=== PATIENT | female | born 1995 | race Caucasian/White ===

== ENCOUNTER 2020-08-25 05:10 | Inpatient (IN) | payer MEDICAID ==
[~2020-08-25] VITALS: Ht 162.6 cm; Wt 88.9 kg
[2020-08-25] MEDS ORDERED: PROTONIX40 MG PO (05:47)
[2020-08-25 05:48] VITALS: BP 109/75; BMI 33.7
[2020-08-25] MEDS ORDERED: TYLENOL ARTHRI650 MG PO (05:48)
--- NOTE | 2020-08-25 06:18 | NUR ---
DR JORDAN NOTIFIED AND REVIEWED PT'S BEHAVIOR AND ASSESSMENT RESULTS. PT IS A LOW RISK PER DR JORDAN. DR JORDAN STATED TP GIVE RESOURCES TO PT AT TIME OF DISCHARGE. NO FURTHER ORDERS AT THIS TIME. RESOURCES REVIEWED WITH PT AND SHE VERBALIZED UNDERSTANDING.
[2020-08-25 07:42] LABS: HEMATOCRIT 33.3 % (36.0-48.0); HEMOGLOBIN 10.7 g/dL (12-16); MCH 27.4 pg (26.0-34.0); MCHC 32.1 g/dL (31.0-37.0); MCV 85.2 fL (80.0-100.0); MEAN PLATELET VOLUME 9.7 fL (7.4-10.4); RBC 3.91 10x6/uL (4.00-5.40); RDW 13.9 % (11.5-14.5); WBC 10.8 10x3/uL (4.8-10.8)
[2020-08-25 08:13] LABS: UDS - AMPHET NEGATIVE QUAL (NEGATIVE); UDS - BARB NEGATIVE QUAL (NEGATIVE); UDS - BENZO NEGATIVE QUAL (NEGATIVE); UDS - COCAINE NEGATIVE QUAL (NEGATIVE); UDS - OPIATE NEGATIVE QUAL (NEGATIVE); UDS - PCP NEGATIVE QUAL (NEGATIVE); UDS - THC NEGATIVE QUAL (NEGATIVE)
[2020-08-26 07:16] LABS: RAPID PLASMA REAGIN Non Reactive (Non Reactive)
[2020-08-26 13:51] VITALS: Ht 162.6 cm; Wt 88.9 kg
== END 2020-08-26 09:23 | disposition home or self-care (01) | DRG 833 ==
LOC: D.LD 05:10
PROVIDERS: ADMIT Obstetrics & Gynecology; ATTEND Obstetrics & Gynecology
PROC: 3E033VJ Introduction of Other Hormone into Peripheral Vein, Percutaneous Approach (ICD-10-PCS; principal; 2020-08-25)
DX: O36.63X0 Maternal care for excessive fetal growth, third trimester, not applicable or unspecified (principal); Z3A.39 39 weeks gestation of pregnancy; O61.0 Failed medical induction of labor

== ENCOUNTER 2020-08-30 10:11 | Outpatient (CLI) | payer MEDICAID ==
[2020-08-26 13:51] VITALS: BMI 33.7
[~2020-08-30 10:11] MED LIST: PROTONIX40 MG PO; TYLENOL ARTHRI650 MG PO
== END 2020-08-30 11:00 | disposition home or self-care (01) ==
LOC: D.LDO 10:11
PROVIDERS: ATTEND Obstetrics & Gynecology
DX: O35.9XX0 Maternal care for (suspected) fetal abnormality and damage, unspecified, not applicable or unspecified (principal)

== ENCOUNTER 2020-08-31 05:20 | Inpatient (IN) | payer MEDICAID ==
[~2020-08-31] VITALS: Ht 162.6 cm; Wt 92.1 kg
[2020-08-31 05:30] VITALS: BP 117/83; Ht 162.6 cm; Wt 92.1 kg
--- NOTE | 2020-08-31 05:37 | NUR ---
IV START IN RIGHT HAND. FIRST ATTEMPT, 18 GUAGE, SALINE LOCKED. IV PATENT, CLEAN AND DRY.
[2020-08-31 06:22] LABS: UDS - AMPHET NEGATIVE QUAL (NEGATIVE); UDS - BARB NEGATIVE QUAL (NEGATIVE); UDS - BENZO NEGATIVE QUAL (NEGATIVE); UDS - COCAINE NEGATIVE QUAL (NEGATIVE); UDS - OPIATE NEGATIVE QUAL (NEGATIVE); UDS - PCP NEGATIVE QUAL (NEGATIVE); UDS - THC NEGATIVE QUAL (NEGATIVE)
[2020-08-31 06:29] LABS: HEMATOCRIT 32.7 % (36.0-48.0); HEMOGLOBIN 10.3 g/dL (12-16); MCHC 31.5 g/dL (31.0-37.0); MCV 85.6 fL (80.0-100.0); MEAN PLATELET VOLUME 9.6 fL (7.4-10.4); RBC 3.82 10x6/uL (4.00-5.40); RDW 14.4 % (11.5-14.5); WBC 11.2 10x3/uL (4.8-10.8)
[2020-09-01] VITALS (12 sets, daily range): BP systolic 92–133; BP diastolic 54–88
[2020-09-01 07:16] LABS: RAPID PLASMA REAGIN Non Reactive (Non Reactive)
--- NOTE | 2020-09-01 08:03 | NUR ---
PT RECEIVED IN BED IN ROOM 1273 FROM QA DEVELOPER RAS GARCIA. PT AAOx3, RATING PAIN 8/10 AND REQUESTING PAIN MED. PT INSTRUCTED WILL SET UP VALVE MECHANIC SOON POSSIBLE. ASSESSMENT COMPLETED, VSS, SEE FLOWSHEET FOR DOC. IV INFUSING PITOCIN IN NS TO LEFT WRIST PIV, NO SIGNS OF PHLEBITIS OR INFILTRATION. FF, ML, U/2. SMALL RUBRA LOCHIA, NO CLOTS EXPELLED WITH MASSAGE. OCCLUSIVE DRESSING OVER LOW TRANSVERSE INCISION IS C/D/I. TORRES CATH IN PLACE AND DRAINING CLEAR YELLOW URINE TO BEDSIDE DRAINAGE. STAT LOCK TO INNER LEFT THIGH, LOOSE. NEW STAT LOCK PLACED TO INNER RIGHT THIGH AND TUBING SECURED. SCD'S ON LE BILAT AND ON PUMP. WILL REVIEW VALVE MECHANIC ORDERS AND SET UP ORDERED FOR PAIN CONTROL.
--- NOTE | 2020-09-01 08:20 | NUR ---
FF, ML, U/2. SMALL RUBRA LOCHIA, NO CLOTS. TORADOL ADMIN ORDERED PRN AND SUPERVISOR FORMING DEPARTMENT SET UP ORDERED, SEE EMAR FOR DOC. NEW ICE PACK TO ABD INCISION. NURSERY TO ROOM WITH AT THIS TIME.
--- NOTE | 2020-09-01 09:00 | NUR ---
FF, ML, U/2. SMALL RUBRA LOCHIA, NO CLOTS. PT VERBALIZES RELIEF FROM PAIN, RATES PAIN APPROX 4/10 AT THIS TIME. TORRES CATH NOTED TO HAVE 20ML DARK YELLOW URINE IN UROMETER. PT DENIES NAUSEA, ENCOURAGED TO PUSH PO FLUIDS FOR HYDRATION TOLERATED. PT STATES SHE WOULD LIKE APPLE JUICE, JELLO, AND A POPSICLE. PROVIDED TO PT REQUESTED, INSTRUCTED TO DRINK SLOWLY AND REPORT ANY NAUSEA. UNDERSTANDING VERBALIZED. PT ALSO GIVEN INSTRUCTIONS ON USING INCENTIVE SPIROMETER, RETURN DEMONSTRATES x3 WITH GOOD EFFORT, GOOD COUGH. SURGICAL PILLOW TO INCISION TO BRACE ABD. PT DENIES FURTHER NEEDS AT THIS TIME. PT MOTHER AT BEDSIDE. SRUx2, CL AND SEAFOOD MANAGER BUTTON IN REACH.
--- NOTE | 2020-09-01 10:02 | NUR ---
THIS RN TO ROOM FOR PT CHECK. PT LYING IN BED, SUPINE WITH RIGHT TILT. RESP EVEN AND UNLABORED. CL AND LINING MARKER BUTTON IN REACH. SRUx2. PT LEFT UNDISTURBED FOR REST.
--- NOTE | 2020-09-01 10:50 | NUR ---
THIS RN TO ROOM FOR PT CHECK. PT CONTINUES RESTING WITH EYES CLOSED, RESP EVEN AND UNLABORED. SUPINE WITH LEFT TILT. SRUx2, CL AND RAPID OUTSOLE STITCHER BUTTON IN REACH. PT LEFT UNDISTURBED FOR REST.
--- NOTE | 2020-09-01 11:35 | NUR ---
THIS RN TO ROOM FOR PT CHECK. PT RESTING WITH EYES CLOSED, RESP EVEN AND UNLABORED. 100ML DARK YELLOW URINE EMPTIED FROM UROMETER. PT AWAKENS TO VOICE FOR FUNDAL CHECK. FF, ML, U/2. MODERATE RUBRA LOCHIA NOTED TO PERIPAD, NO CLOTS EXPELLED WITH MASSAGE. PERICARE DONE, BED TOWEL CHANGED AND NEW PERIPADS PLACED. FANS DELIVERS CLEAR LIQUID LUNCH TRAY TO PT. PT STATES SHE WOULD LIKE TO SIT UP AND EAT. PT ASSISTED TO SITTING POSITION WITH MINIMAL ASSIST, PILLOWS BEHIND BACK AND HEAD. TRAY SET UP FOR PT. PT DENIES FURTHER NEED FOR ASSIST. SRUX2, CL AND CUT FILE CLERK BUTTON IN REACH. COUGHING AND DEEP BREATHING DONE INDEPENDENTLY PER PT.
--- NOTE | 2020-09-01 12:04 | NUR ---
VSS, SEE FLOWSHEET FOR ALL VS DOC. NURSERY NURSE TO ROOM AT THIS TIME FOR ASSISTANCE. SRUx2, CL AND PRICE CLERK IN REACH.
[2020-09-01 13:07] LABS: BASOPHILS 0.1 % (0-2); EOSINOPHILS 0.1 % (0-7); HEMATOCRIT 27.1 % (36.0-48.0); HEMOGLOBIN 8.7 g/dL (12-16); IMMATURE GRANULOCYTES 0.3 % (0-5); LYMPHOCYTE ABS# 1.94 10x3/uL (1.18-3.74); LYMPHOCYTES 12.2 % (15-50); MCH 27.5 pg (26.0-34.0); MCHC 32.1 g/dL (31.0-37.0); MCV 85.8 fL (80.0-100.0); MEAN PLATELET VOLUME 9.6 fL (7.4-10.4); MONOCYTES 9.5 % (2-11); NEUTROPHIL ABS# 12.34 10x3/uL (1.56-6.13); NEUTROPHILS 77.8 % (40-80); PLATELET COUNT 255 10x3/uL (130-400); RBC 3.16 10x6/uL (4.00-5.40); RDW 14.2 % (11.5-14.5)
--- NOTE | 2020-09-01 13:14 | NUR ---
THIS RN TO ROOM FOR PT CHECK. PT SITTING UP IN BED, HOLDING INFANT. 100ML DARK YELLOW URINE EMPTIED FROM UROMETER. FF, ML, U/2. SMALL RUBRA LOCHIA, NO CLOTS. VSS, SEE FLOWSHEET FOR DOC. PT STATES SHE WOULD LIKE SOMETHING NON-DROWSY FOR PAIN IF POSSIBLE, DISCUSSED THAT TORADOL WAS ALREADY GIVEN. PT RATES PAIN 4/10 AT THIS TIME,BUT DOESNT WANT TO PRESS SCHOOL BUS DRIVER/CUSTODIAN BUTTON. PT STATES SHE WAS WONDERING IF THERE WAS ANYTHING ELSE SHE COULD TRY BECAUSE SCHOOL BUS DRIVER/CUSTODIAN IS MAKING HER TOO DROWSY. WILL NOTIFY . Rain2 CL AND SCHOOL BUS DRIVER/CUSTODIAN BUTTON IN REACH.
[2020-09-01 13:31] LABS: WBC 15.8 10x3/uL (4.8-10.8)
--- NOTE | 2020-09-01 13:33 | NUR ---
DR PINEDA ON UNIT. REPORT GIVEN ON PT REQUEST FOR PAIN MED LESS DROWSY THAN UNDER WATER ASSISTANT. ORDER RECEIVED TO STOP AND HOLD UNDER WATER ASSISTANT, AND START PT ON ORAL PAIN MEDS. NORCO 10/325MG PO Q4HPRN MOD-SEVERE PAIN, AND MOTRIN 600MG PO Q6HPRN MILD PAIN. WILL PROCEED ORDERED.
--- NOTE | 2020-09-01 13:38 | NUR ---
DR PINEDA ON UNIT, REVIEWING 1245 LABS. NO NEW ORDERS RECEIVED AT THIS TIME.
--- NOTE | 2020-09-01 14:02 | NUR ---
PT LOGISTICS SUPPLY OFFICER STOPPED AND HELD, IV SALINE LOCKED ORDERED. PT ADMIN PRN MOTRIN AND NORCO 10 ORDERED FOR PAIN, SEE EMAR FOR DOC. PT PROVIDED WITH JUICE AND CRACKERS WITH PO PAIN MEDS ORDERED, ENCOURAGED TO DRINK AND EAT SLOWLY TO AVOID NAUSEA. FF, ML, U/2. SMALL RUBRA LOCHIA. PERIPADS CHANGED. 45ML DARK YELLOW URINE EMPTIED FROM UROMETER. SRUx2, CL IN REACH. PLACED IN [place] AT BEDSIDE PER PT REQUEST.
--- NOTE | 2020-09-01 15:25 | NUR ---
THIS RN TO ROOM FOR PT CHECK. PT SITTING UP IN BED, TALKING WITH SIG OTHER. PT VERBALIZES RELIEF FROM PAIN AFTER PO PAIN MEDS, RATES PAIN APPROX 3-4/10. PT DENIES NAUSEA OR ANY NEEDS. 475ML CLEAR YELLOW URINE EMPTIED FROM UROMETER. WILL ADVANCE DIET TOLERATED PER ORDER FROM DR PINEDA. SRUx2, CL IN REACH.
--- NOTE | 2020-09-01 15:55 | NUR ---
PT CALLS OUT WELDER/FITTER LIGHT REQUESTING ASSIST WITH . PT ASSISTED WITH LATCHING TO RIGHT BREAST. 350ML CLEAR YELLOW URINE EMPTIED FROM UROMETER. PT DENIES FURTHER NEEDS. SRUx2, CL IN REACH.
--- NOTE | 2020-09-01 17:08 | NUR ---
THIS RN TO ROOM FOR PT CHECK. PT FINISHED EATING REG DIET DINNER TRAY, DENIES NAUSEA. 275ML CLEAR YELLOW URINE EMPTIED FROM UROMETER. PT REQUESTING GAS-X FOR GAS PAIN AFTER EATING, ADMIN ORDERED PRN. SEE EMAR FOR DOC. PT DENIES FURTHER NEEDS AT THIS TIME. SRUx2, CL IN REACH. WILL CONT TO MONITOR.
--- NOTE | 2020-09-01 18:20 | NUR ---
PT CALLS OUT STOCK BROKER LIGHT REQUESTING PAIN MED. THIS RN TO ROOM. PT ADMIN PRN NORCO 10 ORDERED FOR PAIN, PT RATING PAIN 12/25. MED TIMES UPDATED ON WHITE BOARD. 600ML CLEAR YELLOW URINE EMPTIED FROM UROMETER. PT DENIES FURTHER NEEDS. INFANT TO PT PER PT REQUEST. SRUx2, CL IN REACH.
--- NOTE | 2020-09-01 19:32 | NUR ---
MOTRIN ADMINISTERED PER EMAR. DR PINEDA AT BEDSIDE DISCUSSING PAIN CONTROL.
--- NOTE | 2020-09-01 20:10 | NUR ---
TORRES DC'D. 450 MLS YELLOW URINE IN BEDSIDE DRAINAGE CONTAINER. FF,MIDLINE U2. SMALL DIME SIZED CLOTS ON PERIPADS. PERICARE DONE AND PERIPADS CHANGED.
--- NOTE | 2020-09-01 20:15 | NUR ---
DR PINEDA PAGED, IMMEDIATE CALL BACK. REPORT GIVEN OF PT REQUESTING TO TURN GLOBAL CLIMATE CHANGE ANALYST BACK ON.
--- NOTE | 2020-09-01 20:20 | NUR ---
PT A,A,OX4. SEE FULL ASSESSMENT PER FLOWSHEET. VSS. SCDS ON. SALINE LOCKED PIV IN LEFT HAND. BANDAGE OVER LOWER TRANSVERSE ABDOMINAL INCISION. CALL LIGHT WITHIN REACH.
--- NOTE | 2020-09-01 21:05 | NUR ---
CHAIR POST MACHINE OPERATOR PUMP STARTED. PT EDUCATION DONE ON CHAIR POST MACHINE OPERATOR USE. PT DENIES NEEDS AT THIS TIME AND REQUESTS TO BE TAKEN TO NURSERY SO SHE CAN SLEEP. INFANT TAKEN TO NURSERY. PT DENIES OTHER NEEDS AT THIS TIME.
--- NOTE | 2020-09-01 22:20 | NUR ---
PT UP TO BR FIRST TIME, 1000 MLS YELLOW URINE VOIDED. QUARTER SIZED CLOT NOTED IN [place] HAT. FF,MIDLINE,U2. PANTIES PROVIDED AND CHUCKS CHANGED. PT DENIES NEEDS AT THIS TIME.
--- NOTE | 2020-09-01 23:40 | NUR ---
ICE WATER PROVIDED. VSS. PT DENIES NEEDS AT THIS TIME.
--- NOTE | 2020-09-02 00:45 | NUR ---
PT UP TO BR SECOND TIME. PT VOIDED, NOT COLLECTED IN HAT. IV SITE RETAPED AND SECURED.
--- NOTE | 2020-09-02 02:59 | NUR ---
PT UP TO VOID THIRD TIME. RESTING IN CRIB. ICE WATER PROVIDED. PT DENIES NEEDS AT THIS TIME.
--- NOTE | 2020-09-02 03:05 | NUR ---
PT STATES SHE VOIDED 1000 MLS URINE IN [facility] BEFORE FLUSHING URINE.
--- NOTE | 2020-09-02 05:13 | NUR ---
PT HOLDING INFANT IN ARMS. DENIES NEEDS AT THIS TIME.
--- NOTE | 2020-09-02 06:15 | NUR ---
PT IV IN LEFT HAND NOTED TO BE INFILTRATED. DR PINEDA PAGED AND IMMEDIATE CALLBACK RECEIVED. REPORT GIVEN OF INFILTRATED IV AND ORDERS RECEIVED TO DC TRAVELING NURSE AND TO START PO PAIN MEDS.
--- NOTE | 2020-09-02 06:30 | NUR ---
PIV IN LEFT HAND DC'D. BANDAID APPLIED.
[2020-09-02 06:32] LABS: BASOPHILS 0.1 % (0-2); EOSINOPHILS 0.2 % (0-7); HEMATOCRIT 27.4 % (36.0-48.0); HEMOGLOBIN 8.7 g/dL (12-16); IMMATURE GRANULOCYTES 0.2 % (0-5); LYMPHOCYTE ABS# 2.24 10x3/uL (1.18-3.74); LYMPHOCYTES 17.2 % (15-50); MCH 27.4 pg (26.0-34.0); MCHC 31.8 g/dL (31.0-37.0); MCV 86.4 fL (80.0-100.0); MEAN PLATELET VOLUME 9.1 fL (7.4-10.4); MONOCYTES 11.3 % (2-11); NEUTROPHIL ABS# 9.27 10x3/uL (1.56-6.13); PLATELET COUNT 265 10x3/uL (130-400); RBC 3.17 10x6/uL (4.00-5.40); RDW 14.6 % (11.5-14.5); WBC 13.1 10x3/uL (4.8-10.8)
--- NOTE | 2020-09-02 06:49 | NUR ---
PT UP TO SHOWER. TOWELS PROVIDED.
--- NOTE | 2020-09-02 07:45 | NUR ---
PT OUT OF SHOWER AND DRESSED IN HER CLOTHING, SITTING UP TO EAT BREAKFAST. RATES PAIN AT INCISION SITE AT 6/10 AND STATES "CRAMPING A LOT AND BURNING" AGREEABLE TO PAIN MEDM, SEE EMAR. FUNDUS IS FIRM AT U/U WITH LIGHT BLEEDING TO [place] PAD, SHE DENIES CLOTS WITH VOIDS. INCISION IS CLEAN AND DRY WITH STERI STRIPS IN PLACE. LARGE ICE WATER, SMALL APPLE JUICE REQUESTED. SIDE RAILS UP X 2 WITH PHONE AND CALL LIGHT IN PLACE.
--- NOTE | 2020-09-02 08:30 | NUR ---
PAIN REASSESSMENT, SHE RATES AT 2/10 AT THIS TIME, FEEDING WITH NO NEEDS AT THIS TIME. CALL LIGHT IN REACH WITH SIDE RAILS UP X 2.
--- NOTE | 2020-09-02 10:45 | NUR ---
PT DENIES NEEDS AT THIS TIME. SIG OTHER AT BEDSIDE WITH INFANT IN CRIB.
--- NOTE | 2020-09-02 12:02 | NUR ---
PAIN MED GIVEN ASKED FOR BY PATIENT, SHE RATES PAIN AT 5/10 AT THIS TIME. BONDING WITH , CALL LIGHT IN REACH WITH SIDE RAILS UP X 2.
--- NOTE | 2020-09-02 15:20 | NUR ---
PT UP WALKING ABOUT ROOM, RATES PAIN AT 2-3/10. DENIES NEEDS AT THIS TIME.
--- NOTE | 2020-09-02 16:38 | NUR ---
DR PINEDA AT BEDSIDE.
--- NOTE | 2020-09-02 17:09 | NUR ---
PT CALLS ON LIGHT. C/O INCISIONAL PAIN. PERCOCET 10/325 GIVEN PO ORDERED. PT INSTRUCTED ON MED. VERBALIZES UNDERSTANDING.
--- NOTE | 2020-09-02 17:30 | NUR ---
PAIN REASSESSMENT SHE RATES PAIN AT 2/10 AND DENIES NEEDS AT THIS TIME.
--- NOTE | 2020-09-02 21:30 | NUR ---
PATIENT IN BED WITH INFANT BONDING AT THIS TIME. PATIENT COMPLAINS OF PAIN 01/25. PAIN MEDICATION RECENTLY GIVEN. PATIENT DENIES NEEDS AT THIS TIME.
--- NOTE | 2020-09-02 22:00 | NUR ---
PATIENT WITH CONCERNS ABOUT , RN ANSWERED QUESTIONS AT BEDSIDE. MOTHER VERBALIZED UNDERSTANDING OF INFORMATION PROVIDED. NO ADDITIONAL NEEDS NOTED. SIDE RAILS UP X 2, CALL LIGHT WITHIN REACH, BED IN LOW POSITION.
[2020-09-03 04:45] VITALS: BP 120/68
--- NOTE | 2020-09-03 04:53 | NUR ---
PATIENT UP IN BED WITH INFANT. VSS TAKEN AT THIS TIME. MOTHER OFFERED THE SERVICES OF THE NURSERY SHE HAS NOT RESTED ALL NIGHT. MOTHER AGREEDED SO THAT SHE CAN GET SOME REST. NO OTHER NEEDS EXPRESSED AT THIS TIME.
--- NOTE | 2020-09-03 07:00 | NUR ---
THIS RN AND Gemma CHOE RN TO BEDSIDE FOR BEDSIDE SHIFT REPORT. REC'D PT JUST WAKING. PAIN AND NEEDS ASSESSED. PT REPORTS PAIN 12/25. SHIFT ASSESSMENT COMPLETED. SEE FLOWSEET. PT MEDICATED W/MOTRIN 600MG AND PERCOCET 10/325MG PO.FRESH ICE WATER SERVED. PT DENIES FURTHER NEEDS AT THIS.
[2020-09-03 07:01] VITALS: BP 107/73
--- NOTE | 2020-09-03 08:05 | NUR ---
RN TO BEDSIDE TO DISCUSS PT'S HX OF SUICIDAL THOUGHTS. PT REPORTS SHE IS IN COUNSELING FOR HX. PT CURRENTLY ATTEMPTING TO BABY AT THIS TIME.
--- NOTE | 2020-09-03 08:40 | NUR ---
RN TO ROOM TO DISCUSS IMMUNIZATIONS. PT AGREEABLE TO RECEIVING MMR AND DTAP.
--- NOTE | 2020-09-03 09:15 | NUR ---
RN TO BEDSIDE FOR MMR AND TDAP ADMIN. SEE EMAR. DISCHARGE TEACHING STARTED TO INCLUDE C/S CARE, PP DEPRESSION, FOLLOW UP APPT. AND PAIN MEDICATION. PT REPORTS SHE SEES A THERAPIST 1 X WEEK FOR HX OF SUICIDIAL THOUGHTS. PT ENCOURAGED TO SPEAK WITH THERAPIST IS HAVING S/S OF PP DEPRESSION. PT VERBALIZES UNDERSTANDING. FRESH ICE WATER SERVED. PT DENIES FURTHER NEEDS.
--- NOTE | 2020-09-03 10:30 | NUR ---
DR PINEDA TO PT'S ROOM AT THIS TIME.
--- NOTE | 2020-09-03 11:45 | NUR ---
RN TO BEDSIDE TO COMPLETE DISCHARGE TEACHING. COPY OF DISCHARGE PAPERS PROVIDED. RX FOR PERCOCET 10 AND MOTRIN PROVIDED TO PT. D/C TEACHING ABOUT POST WARNING SIGNS GIVEN. PT DENIES QUESTIONS. PT TO BRING HER CARSEAT IN FOR DISCHARGE.
--- NOTE | 2020-09-03 12:00 | NUR ---
PT DISCHARGED HOME IN STABLE CONDITION. TRANSPORTED VIA W/C TO AWAITING CAR TO BE DRIVEN HOME BY MOTHER.
--- NOTE | 2020-09-03 13:49 | OP ---
PATIENT NAME: CHELSIE HENSLEY MEDICAL RECORD: [id number] :94 LOCATION:[id number] ADMISSION DATE:08/31/20 SURGEON: SHENG DAWSON MD DATE OF OPERATION: 09/01/2020 PREOPERATIVE DIAGNOSES: 1. Induction of labor at 40 weeks. 2. Arrest of descent in the latent phase of labor. POSTOPERATIVE DIAGNOSES: 1. Induction of labor at 40 weeks. 2. Arrest of descent in the latent phase of labor. PROCEDURE: Primary low transverse section. SURGEON: Sheng Dawson. ANESTHESIA: Regional via epidural. IV FLUIDS: Per anesthesia record. ESTIMATED BLOOD LOSS: 1000 mL. SPECIMENS: Placenta and cord for gases. COMPLICATIONS: None apparent. FINDINGS: 1. Viable male , Apgars 9 at 1 and 9 at 5. 2. Placenta delivered manually intact 3-vessel cord noted. 3. Normal adnexa bilaterally. DESCRIPTION OF PROCEDURE: The patient was taken to the operating room where regional anesthesia was achieved without any difficulty. The patient was prepped and draped in normal sterile fashion in the dorsal supine position. SCDs were on and functioning normally. A Kiser catheter was in place and was draining freely. Following prep and drape, the patient was tested for good level of regional anesthesia, which was found to be adequate. A Pfannenstiel skin incision was then made and extended downward to the underlying subcutaneous fat to the level of the fascia. The fascia was then excised in the midline and extended bilaterally using the Oseguera scissors. The superior and inferior aspects of the fascial incision were then grasped with Angel clamps times 2, tented upward, and sharply dissected from the underlying rectus muscle using the Bovie cautery and Oseguera scissors. Rectus muscles were then bluntly in the midline and the peritoneum entered sharply at the superior aspect of the incision using the Metzenbaum scissors. The peritoneal incision was then extended laterally using the Metzenbaum scissors and the Bovie cautery. The bladder blade was then placed into the pelvis and a bladder flap was created by excising the anterior leaf of the broad ligament across the lower uterine segment. This was further developed and the bladder blade was placed across the now formed bladder flap. Low transverse incision was made and entry into the uterus was performed bluntly. The uterine incision was extended using the Pelosi method. The vertex was then found to be extended and a Kiwi vacuum was placed on the occiput of the fetus. The vertex was delivered atraumatically. Following delivery of the head, the vacuum was released and the OPERATIVE REPORT [id number] CHELSIE HENSLEY rest of the infant was delivered atraumatically. Baby was bulb suctioned upon delivery. Cord was clamped times 2, cut. The infant was handed to the awaiting nursery team. Cord was obtained for gases. The placenta was removed manually and intact. The uterus was exteriorized at which point a complete right uterine artery transection was identified. A ring forceps was placed on the proximal and distal fractures in the uterine artery with good hemostasis noted. The uterus was cleared of all clots and debris and vigorously massaged until good uterine tone was noted. Attention was then turned to the right side of the incision where the uterine artery transection was oversewn superiorly and inferiorly with 0 Vicryl suture. The ring forceps were removed and good hemostasis was noted at which point a ring forceps was used to grasp the true corner of the incision and the right aspect of the uterine incision was repaired with 0 Vicryl in a running-locked fashion. This was also performed of the distal segment. Several areas of bleeding on the incision were oversewn with 2-0 Vicryl in a [id number] fashion. Posterior cul-de-sac was then thoroughly irrigated. The uterus was replaced into the pelvis. The anterior cul-de-sac was then thoroughly irrigated and good hemostasis was again noted from the uterine incision. Mitali coagulant powder was then placed on the uterine incision. Counts were correct times 2 for needles, sponges, and instruments. The fascia was then repaired with 0 loop PDS times 1 and the skin repaired with alee. The patient tolerated the procedure well and was transported to the postanesthesia recovery stable without incident. TRANSINT:[id number] Voice Confirmation ID: [id number] DOCUMENT ID: [id number] SHENG DAWSON MD at 1349 CC: [id number] DICTATION DATE: 09/01/20749 SKOOG OPERATOR: 09/01/20 0824 DIS IN 09/03/20 [facility] [address] [place] [address]
== END 2020-09-03 12:00 | disposition home or self-care (01) | DRG 788 ==
LOC: D.LD 05:20
PROVIDERS: ADMIT Obstetrics & Gynecology; ATTEND Obstetrics & Gynecology
PROC: 10D00Z1 Extraction of Products of Conception, Low, Open Approach (ICD-10-PCS; principal; 2020-09-01 06:00)
DX: O82 Encounter for cesarean delivery without indication (principal); Z3A.40 40 weeks gestation of pregnancy; Z37.0 Single live birth; O99.344 Other mental disorders complicating childbirth